=== PATIENT | female | born 1990 | race Caucasian/White ===

== ENCOUNTER 2017-06-08 06:55 | Day surgery (SDC) | payer MEDICAID ==
[~2017-06-08] VITALS: Ht 162.6 cm; Wt 46.0 kg
[~2017-06-08 06:55] MED LIST: CLIN-80 PO; ONDA4TAB12 PO
[2017-06-08] MEDS ORDERED: fentaNYL/PF 50MCG/1 ML 2ML syringe ONE ×2 (07:05→09:12)
[2017-06-08] MEDS ORDERED: MIDAZolam 5mg/5ml vial ONE (07:06)
[2017-06-08] MEDS ORDERED: LIDOcaine Viscous 15ml cup ONE (07:07)
[2017-06-08] MEDS ORDERED: diphenhydrAMINE 50 mg/ml inj ONE (07:07)
[2017-06-08] MEDS ORDERED: DICY20TA11 PO (07:19)
[2017-06-08] MEDS ORDERED: RANI150C4 PO (07:20)
[2017-06-08 07:21] LABS: PREOP URINE HCG NEGATIVE (NEGATIVE)
[2017-06-08 07:29] VITALS: BP 97/58
[2017-06-08 09:17] VITALS: BP 98/51
[2017-06-08 09:27] VITALS: BP 111/70
[2017-06-08 09:37] VITALS: BP 108/69
[2017-06-08 09:47] VITALS: BP 108/72
== END 2017-06-08 09:56 | disposition home or self-care (01) ==
LOC: GI LAB 06:55
PROVIDERS: ATTEND Internal Medicine Gastroenterology
DX: D13.2 Benign neoplasm of duodenum (principal); K21.0 Gastro-esophageal reflux disease with esophagitis; K44.9 Diaphragmatic hernia without obstruction or gangrene; K29.50 Unspecified chronic gastritis without bleeding; F17.210 Nicotine dependence, cigarettes, uncomplicated; F41.9 Anxiety disorder, unspecified; F12.90 Cannabis use, unspecified, uncomplicated; Z86.14 Personal history of Methicillin resistant Staphylococcus aureus infection; Z88.0 Allergy status to penicillin; Z98.890 Other specified postprocedural states; Z79.899 Other long term (current) drug therapy
CPT/HCPCS: 43239; 45378; 81025; 99152; 99153; J2250; J3010; J7030; A4620; G0500; J1200